=== PATIENT | female | born 1965 | race Caucasian/White ===

== ENCOUNTER 2023-09-14 07:26 | Outpatient (CLI) | payer OTHER, SELFPAY | END 2023-09-14 07:27 | disposition home or self-care (01) | LOC: INJ CL 07:30 | PROVIDERS: PCP Family Medicine; Visit Provider Family Medicine | DX: M47.816 Spondylosis without myelopathy or radiculopathy, lumbar region (principal) | CPT/HCPCS: 64493; 64494; J0702; Q9966 ==